=== PATIENT | female | born 1965 | race Hispanic/Latino ===

== ENCOUNTER → 2021-09-04 | Outpatient (CLI) | payer BC | END | disposition home or self-care (01) | LOC: RAH 11:09 | PROVIDERS: ATTEND Physician Assistant | DX: S39.012A Strain of muscle, fascia and tendon of lower back, initial encounter (principal); M54.16 Radiculopathy, lumbar region; X58.XXXA Exposure to other specified factors, initial encounter; Y93.89 Activity, other specified; Y92.89 Other specified places as the place of occurrence of the external cause; Y99.8 Other external cause status | CPT/HCPCS: 72148 ==